=== PATIENT | female | born 1985 | race Hispanic/Latino ===

== ENCOUNTER 2021-04-18 15:54 | Emergency (ER) | payer MEDICAID, SELFPAY ==
[2021-04-18] VITALS (7 sets, daily range): BP systolic 110–128; BP diastolic 72–81; PULSE 107–123; RESP 14–23; TEMP 37.9–39.3; O2SAT 94–99
--- NOTE | ~2021-04-18 | XR_ITS ---
EXAMINATION: XR chest 2V DATE: 04/18/2021 16:49 INDICATION: Cough and fever TECHNIQUE: PA and lateral views of the chest are obtained. COMPARISON: None available FINDINGS: There are minimal airspace opacities of the lung bases. There is no pleural effusion or pne umothorax. The cardiomediastinal silhouette is normal. The visualized bones and soft tissues are unre markable. IMPRESSION: 1. Minimal bibasilar airspace opacity, consistent with atelectasis versus pneumonia. Reviewed, dictated and finalized at location B. IMPRESSION: 1. Minimal bibasilar airspace opacity, consistent with atelectasis versus pneum onia.
[2021-04-18 16:32] LABS: Hematocrit 45.8 % (37.0-47.0); Hemoglobin 15.2 g/dL (12.0-15.0); Immature Granulocyte Absolute 0.01 K/mm3 (0.00-0.031); Immature Granulocyte Percent A 0.2 % (0-0.5); Immature Platelet Fraction Pct 24.5 % (0.9-11.2); Lymphocytes Absolute Auto 1.23 K/mm3 (0.9-3.2); Lymphocytes Percent Auto 28.1 % (18.3-44.2); Mean Corpuscular HGB Conc 33.2 g/dl (32-36); Mean Corpuscular Hemoglobin 28.4 pg (26-34); Mean Corpuscular Volume 85.4 fl (80-100); Monocytes Absolute Auto 0.3 K/mm3 (0.1-0.6); Monocytes Percent Auto 5.7 % (2.6-8.5); Neutrophils Absolute Auto 2.9 K/mm3 (1.3-6.7); Platelet Count Result 86 k/mm3 (150-375); Red Blood Count 5.36 M/mm3 (4.2-5.4); Red Cell Distribution Width 12.5 % (11.5-14.5); White Blood Count 4.4 K/mm3 (4.5-10.0)
--- NOTE | 2021-04-18 16:33 | ECG_ITS ---
Measurements Intervals [place] Rate: 124 P: 52 SC: 130 QRS: 13 QRSD: 84 T: 4 QT: 336 QTc: 483 Interpretive Statements SINUS TACHYCARDIA DELAYED PRECORDIAL R/S TRANSITION NONSPECIFIC T-WAVE ABNORMALITY- ANTEROLAT/INF LEADS ABNORMAL ECG Electronically Signed On 04-19-2021 7:28:57 CDT by Justin Cr D.O.
[2021-04-18 16:40] LABS: Anion Gap 8 mmol/L (8-16); Blood Urea Nitrogen 7 mg/dL (7-17); Calcium 8.9 mg/dL (8.4-10.2); Carbon Dioxide 25 mmol/L (22-30); Chloride 102 mmol/L (98-107); Estimated Glomerular Filt Rate > 60; Glucose 254 mg/dL (65-110); Potassium 3.8 mmol/L (3.4-5.0); Sodium 135 mmol/L (137-145)
[2021-04-18 19:21] LABS: Add Urine Microscopic? YES; Appearance Urine Cloudy (Clear); Bacteria Urine Trace /hpf; Bilirubin Urine Negative (Negative); Blood Urine 1+ (Negative); Color Urine Amber (Yellow); Glucose Urine UA 1+ mg/dL (Negative); Ketones Urine 1+ mg/dL (Negative); Leukocyte Esterase Ur 1+ LEU/UL (Negative); Mucus Urine Heavy /lpf; Nitrate Urine Negative (Negative); Protein Urine 1+ mg/dL (Negative); Squamous Epithelial Cell Urine Many /hpf (Few)
[2021-04-18] MEDS: KETOROLAC 30 MG/ML VIAL (*BKC) IV PUSH (19:23)
[2021-04-18] MEDS: ACETAMINOPHEN 500 MG TABLET 1000 MG PO (19:23)
[2021-04-18] MEDS: SODIUM CHLORIDE 0.9% IV 500 ML 999 ML IV CONT (19:23)
--- NOTE | 2021-04-18 20:00 | ED.FEVER ---
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 She denies any nausea or vomiting or abdominal pain. Denies any exposure to Covid she states that she is at home with her 2 kids. She states that she has not been vaccinated. MD elicited complaint: fever and malaise Pertinent past history: diabetes Onset (ago): day(s) (4) Exacerbating factors: nothing Associated symptoms: myalgias and cough Related Data Allergies Allergy/AdvReac Type Severity Reaction Status Date / Time No Known Allergies Allergy Verified 04/18/21 18:45 Review of Systems Review of Systems: All systems reviewed & are unremarkable except as noted in HPI and below Constitutional: Constitutional: Reports body ache(s), Reports fatigue and Reports fever(s) Eyes: Eyes: Reports no additional eye complaints ENT: Reports system reviewed and no additional complaints, except as documented Cardiovascular: Cardiovascular: Reports no additional cardiovascular complaints Respiratory: Respiratory: Reports as per HPI Gastrointestinal: Gastrointestinal: Reports no additional gastrointestinal complaints Musculoskeletal: Musculoskeletal: Reports no additional musculoskeletal complaints Neurologic: Reports system reviewed and no additional complaints, except as documented PMFSH Social History Social History Gender identity (if verbalized by the patient): Female Exam Narrative: Exam Narrative: GENERAL: Well-appearing, well-nourished, febrile and in no acute distress. HEAD: Normocephalic, atraumatic. EYES: PERRLA and EOMI.. NECK: Supple. CHEST: Clear to auscultation. No respiratory distress. HEART: Regular rate and rhythm. No murmur heard. Normal peripheral pulses. ABDOMEN: Soft, nontender, nondistended, normal active bowel sounds. EXTREMITIES: Normal range of motion. No edema. SKIN: Warm, dry, no rash. NEURO: No focal deficits. Alert and oriented x3. PSYCH: Normal mood and affect. Course Course Emergency Course: Inform patient about her lab work, x-ray findings. Advised her to drink plenty of fluids take antibiotic as prescribed. Vital Signs Vital signs: Vital Signs Temperature 38.5 C H 04/18/21 16:07 Pulse Rate 122 H 04/18/21 16:07 Respiratory Rate 14 04/18/21 16:07 Blood Pressure 128/78 04/18/21 16:07 Pulse Oximetry 99 04/18/21 16:07 Temperature 38.3 C H 04/18/21 19:59 Pulse Rate 107 H 04/18/21 19:59 Respiratory Rate 18 04/18/21 19:59 Blood Pressure 110/72 04/18/21 19:59 Pulse Oximetry 94 04/18/21 19:59 MDM - Fever Lab Data Result diagrams: 04/18/21 16:22 04/18/21 16:22 Labs: Lab Results 04/18/21 04/18/21 04/18/21 Range/Units 16:22 16:22 19:07 WBC 4.4 L (4.5-10.0) K/mm3 RBC 5.36 (4.2-5.4) M/mm3 Hgb 15.2 H (12.0-15.0) g/dL Hct 45.8 (37.0-47.0) % MCV 85.4 (80-100) fl MCH 28.4 (26-34) pg MCHC 33.2 (32-36) g/dl RDW 12.5 (11.5-14.5) % Plt Count 86 L (150-375) k/mm3 MPV TNP Immature Gran % (Auto) 0.2 (0-0.5) % Neut % (Auto) 66.0 (45.5-73.1) % Lymph % (Auto) 28.1 (18.3-44.2) % [place] % (Auto) 5.7 (2.6-8.5) % Eos % (Auto) 0.0 (0-4.4) % Baso % (Auto) 0.0 L (0.2-1.2) % Lymph # (Auto) 1.23 (0.9-3.2) K/mm3 [place] # (Auto) 0.3 (0.1-0.6) K/mm3 Eos # (Auto) 0.0 (0-0.3) K/mm3 Baso # (Auto) 0.0 (0.0-0.1) K/mm3 Abs Immat Gran (auto) 0.01 (0.00-0.031) K/mm3 Absolute Neuts (auto) 2.9 (1.3-6.7) K/mm3 Absolute Nucleated RBC 0.0 (0.0-0.012) K/mm3 Nucleated RBC % 0.0 (0.0-0.2) % % Immature Plt Fraction 24.5 H (0.9-11.2) % Sodium 1
== END 2021-04-18 20:39 | disposition home or self-care (01) ==
PROVIDERS: Emergency Medicine; Emergency Provider Family Medicine
DX: J18.9 Pneumonia, unspecified organism (principal); E11.9 Type 2 diabetes mellitus without complications; R00.0 Tachycardia, unspecified; R94.31 Abnormal electrocardiogram [ECG] [EKG]
CPT/HCPCS: 36415; 71046; 80048; 81001; 85025; 85055; 87086; 87088; 93005; 96361; 96374; 99284; A9270; J1885; J7040

== ENCOUNTER 2021-04-22 20:27 | Inpatient (IN) | payer MEDICAID, OTHER, SELFPAY ==
[2021-04-22] VITALS (16 sets, daily range): BP systolic 100–112; BP diastolic 67–83; PULSE 95–114; RESP 24–34; TEMP 36.2–37.7; O2SAT 86–100
--- NOTE | ~2021-04-22 | XR_ITS ---
XR chest 1V portable DATE: 04/22/2021 22:25 INDICATION: Shortness of breath, fever TECHNIQUE: Portable AP chest on 04/18/2021 at 2215 hours COMPARISON: 04/18/2021 2 view chest FINDINGS: There are extensive patchy bilateral pulmonary infiltrates scattered throughout both lung f ields, significantly increased since 04/24 2021. Normal heart size. No pleural effusion. No pneumothorax. IMPRESSION: Extensive patchy bilateral pulmonary infiltrates, dramatically increased since 04/18/2021 Reviewed, dictated and finalized at location A. IMPRESSION: Extensive patchy bilateral pulmonary infiltrates, dramatically incr eased since 04/18/2021
--- NOTE | ~2021-04-22 | CT_ITS ---
EXAMINATION: CTA chest PE abdomen pel DATE: 04/22/2021 22:35 INDICATION: Hypoxia. Elevated d-dimer. TECHNIQUE: Computed tomography angiography (CTA) of the chest and abdomen was performed with 100 mL O mnipaque-350 intravenous contrast timed to evaluate the pulmonary arteries. Coronal maximum intensity projection 3D-reconstructions were created by the technologist. Automated exposure control and itera tive reconstruction technique were employed. Exam dose: 1431.03 mGy-cm total exam DLP. COMPARISON: 08/23/2021 portable AP chest FINDINGS: There is diagnostic contrast enhancement of the pulmonary arteries. No central pulmonary em bolus is identified. The peripheral pulmonary arteries are not optimally demonstrated due to respirat ory motion. No thoracic aortic aneurysm or dissection. Normal heart size. No pericardial effusion. There is extensive patchy bilateral groundglass pulmonary infiltrates likely due to Covid 19 pneumoni a. There is mild hilar lymphadenopathy. There is diffuse hepatic steatosis. Mild splenomegaly. No hepatic, splenic, pancreatic or right, adre nal or renal space-occupying mass lesion is detected. Normal caliber of the abdominal aorta. No intraperitoneal or retroperitoneal or pelvic mass lesion or adenopathy or ascites. The uterus, adnexa and urinary bladder are unremarkable. No bowel obstruction, bowel wall thickening, pneumatosis or intraperitoneal free air. No suspicious osteolytic or osteoblastic lesions of the chest, abdomen or pelvis. IMPRESSION: No evidence of central pulmonary embolism Extensive patchy bilateral pulmonary infiltrates Mild splenomegaly Hepatic steatosis Reviewed, dictated and finalized at Location A. Reviewed, dictated and finalized at location A.
--- NOTE | 2021-04-22 20:44 | ECG_ITS ---
Measurements Intervals [place] Rate: 113 P: 36 DC: 126 QRS: 14 QRSD: 89 T: -11 QT: 325 QTc: 446 Interpretive Statements SINUS TACHYCARDIA NONSPECIFIC T-WAVE ABNORMALITY- ANTEROLAT/INF LEADS BASELINE ARTIFACT- II, III, AVF, V2-V6 ABNORMAL ECG Electronically Signed On 04-23-2021 6:38:42 CDT by Justin Cr D.O.
[2021-04-22 21:21] LABS: Hemoglobin 13.9 g/dL (12.0-15.0); Immature Platelet Fraction Pct 23.4 % (0.9-11.2); Mean Corpuscular HGB Conc 33.9 g/dl (32-36); Mean Corpuscular Hemoglobin 28.4 pg (26-34); Mean Corpuscular Volume 83.8 fl (80-100); Mean Platelet Volume 14.5 fl (7.4-10.4); Platelet Count Result 115 k/mm3 (150-375); Red Blood Count 4.89 M/mm3 (4.2-5.4); Red Cell Distribution Width 12.4 % (11.5-14.5); White Blood Count 5.3 K/mm3 (4.5-10.0)
--- NOTE | 2021-04-22 21:25 | ED.SOB ---
HPI - SOB/Dyspnea General Chief Complaint: Shortness of Breath/Dyspnea Stated Complaint: sob Time Seen by Provider: 04/22/21 21:01 Source: patient Mode of arrival: ambulatory Limitations: language barrier History of Present Illness HPI Narrative: This is a 35 year old female who presents for evaluation of worsening shortness of breath. PAtient developed cough, fever, and headache 8-9 days. She was evaluated at [facility] 4 days ago , and she was diagnosed with pneumonia. She was discharged with antibiotics but she was not swabbed for covid. She has returned because she is having worsening shortness of breath, fever and headache. She has not been vaccinated for covid. She denies chest pain, vomiting or diarrhea. She was found to be hypoxic at time of triage with oxygen saturation of 86 % on room air. Related Data Allergies Allergy/AdvReac Type Severity Reaction Status Date / Time No Known Allergies Allergy Verified 04/18/21 18:45 Review of Systems Review of Systems: All systems reviewed & are unremarkable except as noted in HPI and below Constitutional: Constitutional: Reports chills and Reports fever(s) Cardiovascular: Cardiovascular: Denies chest pain Respiratory: Respiratory: Reports cough and Reports dyspnea Gastrointestinal: Gastrointestinal: Denies abdominal pain, Denies diarrhea, Denies nausea and Denies vomiting Neurologic: Reports headache(s) [facility] Past Medical History Medical History (Updated 04/23/21 @ 08:25 by Ruma Mae MD) Patient denies medical problems Surgical History Surgical History (Updated 04/23/21 @ 03:37 by Marina Correa DO) Ectopic , tubal History of tubal ligation Family History Family History Mother No significant medical problems Father No significant medical problems Social History Social History (Updated 04/23/21 @ 03:39 by Marina Correa DO) Social History: She lives at home with her 5-year-old and 9-year-old daughters and her boyfriend. She has a 22-year-old daughter that is moved out. 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 She will occasionally smoke a cigarette every month or so. She drinks alcohol on occasion in moderation. She denies listed substance use. Her 1st language is [place]. She is originally from [place]. Smoking status: Current some day smoker Alcohol intake: never Substance use: never Gender identity (if verbalized by the patient): Female Spiritual care concerns: No Exam Const: General: alert and ill appearing Orientation/consciousness: patient oriented x3 HENMT: Mouth: Yes moist mucous membranes Throat: posterior oropharynx normal and uvula midline Eyes: Pupils: Equal, round and reactive pupils present EOM: EOMs intact bilaterally Resp: Effort & Inspection: normal respiratory effort, no retractions and tachypneic Auscultation: rales (right) Cardio: Rate: tachycardic Rhythm: regular rhythm Heart sounds: no murmurs GI: GI Palp: Yes Soft to palpation, Yes Tenderness to palpation present (GI) (RUQ, epigastric), No Guarding due to palpation present (GI) and No Rigid due to palpation Auscultation: normal bowel sounds Skin: General skin exam: normal color Rashes: no rashes Neuro: General: patient oriented x3, moves all extremities and CN's II-XI intact bilaterally Course Reevaluation(s) Reevaluation #1: Patient understands she will be admitted for pneumonia. She likely has covid but will start antibiotics for now. S Date: 04/23/21 Time: 00:14 Consultations Consultation #1: I discussed case with DR. correa. She accepts patient to hospitalist service. She agrees with starting dexamethasone. Date: 04/23/21 Time: 00:14 Vital Signs Vital signs: Vital Signs Temperature 99.8 F H 04/22/21 20:38 Pulse Rate 111 H 04/22/21 20:38 Respiratory Rate 28 H 04/22/21 20:38 Blood Pressure 110/83 04/22/21 20:38 Pulse Oximetry 86 L 04/22/21 20:3
[2021-04-22 21:27] LABS: INR 0.9; Prothrombin Time 12.5 Seconds (11.1-14.7)
[2021-04-22 21:28] LABS: Partial Thromboplastin Time 27.8 SECONDS (22.3-36.8)
[2021-04-22 21:30] LABS: Lactic Acid Reflex 1.1 mmol/L (0.7-2.1)
[2021-04-22 21:34] LABS: CRP 7.8 mg/dL (<1.0); Lipase 397 U/L (23-300)
[2021-04-22] MEDS: SODIUM CHLORIDE 0.9% IV 1,000 ML 999 ML IV CONT (21:36)
[2021-04-22 21:41] LABS: D Dimer 0.81 ug/mL (<0.48)
[2021-04-22 21:43] LABS: Alanine Aminotransferase 44 U/L (4-35); Albumin Level 3.8 g/dL (3.5-5.1); Alkaline Phosphatase 45 U/L (38-126); Anion Gap 9 mmol/L (8-16); Aspartate Amino Transferase 50 U/L (14-36); Bilirubin,Total 0.6 mg/dL (0.2-1.3); Blood Urea Nitrogen 6 mg/dL (7-17); Calcium 8.7 mg/dL (8.4-10.2); Carbon Dioxide 28 mmol/L (22-30); Chloride 96 mmol/L (98-107); Estimated CRCL calculation 192 ml/min; Estimated Glomerular Filt Rate > 60; Glucose 261 mg/dL (65-110); Potassium 3.7 mmol/L (3.4-5.0); Sodium 133 mmol/L (137-145); Troponin I < 0.012 ng/mL (0.000-0.034)
[2021-04-22] MEDS: ALBUTEROL SULFATE (*SP) AEROSOL 1 PUFF 4 PUFF INHALATION (21:49)
[2021-04-22 21:53] LABS: Band Neutrophils Percent 5 % (0-6); Lymphocytes Absolute Manual 1.69 K/mm3 (1.1-4.5); Monocytes Absolute Manual 0.21 K/mm3 (0.1-0.90); Monocytes Percent Manual 4 % (3-9); Neutrophils Absolute Manual 3.39 K/mm3 (1.7-7.2); Neutrophils Percent Manual 59 % (46-73); Total Cells Counted 100
[2021-04-22 21:54] LABS: Atypical Lymphocytes Present; Platelet Estimate Decreased (Adequate)
[2021-04-22 22:00] LABS: Alveolar/Arterial O2 Gradient 97.6 mmHg; Base Excess ABG 2.6 mEq/l (+/-2.0); Fractional Inspired Oxygen 28 %; HCO3 ABG 25.1 mEq/l (22.0-26.0); Methemoglobin ABG 0.3 %THb (0-1.5); Oxygen Content ABG 20.2 %vol (16.0-22.0); Oxygen Saturation ABG 94.2 % (95.0-100.0); Oxyhemoglobin 91.8 % THb (90.0-100.0); PCO2 ABG 32.8 mmHg (35.0-45.0); PO2 ABG 63.3 mmHg (80.0-100.0); PO2 FiO2 Ratio Arterial Blood 2.26 %; Reduced Hemoglobin 7.9 %THb (0-5.0); Total Hemoglobin 15.7 g/dL (12.0-18.0); pH ABG 7.502 (7.350-7.450)
[2021-04-22 22:01] LABS: Device NASAL CANNULA; Modified Allen's Test Pass; Site Drawn LEFT RADIAL
--- NOTE | 2021-04-22 22:07 | PCRCNOTE ---
Critical value pH (7.502) called to Klaudia Marquez RN
[2021-04-22] MEDS: DEXAMETHASONE 2 MG TABLET 6 MG PO (23:23)
[2021-04-22 23:57] LABS: Add Urine Microscopic? YES; Appearance Urine Clear (Clear); Bilirubin Urine Negative (Negative); Blood Urine 1+ (Negative); Color Urine Yellow (Yellow); Glucose Urine UA 2+ mg/dL (Negative); Ketones Urine 1+ mg/dL (Negative); Leukocyte Esterase Ur Negative LEU/UL (Negative); Mucus Urine Rare /lpf; Nitrate Urine Negative (Negative); Protein Urine Negative (Negative); RBC Urine 0-2 /hpf (0-2); Specific Grav Ur 1.011 (1.001-1.035); Squamous Epithelial Cell Urine Rare /hpf (Few); Urobilinogen Urine Negative mg/dL (<2.0); WBC Urine 0-3 /hpf
[2021-04-23] VITALS (14 sets, daily range): BP systolic 100–115; BP diastolic 64–77; PULSE 81–94; RESP 12–30; TEMP 36.5–36.7; O2SAT 91–98; BMI 29.2
--- NOTE | 2021-04-23 02:37 | ADMGEN ---
This patient, Yousif Hillman, was admitted to 3 [facility] [place] [place] Room 300-01. Patient/family oriented to hospital policies and general routines including ID bracelet, bed and alarms, visiting hours, pain management, procedures, bathroom and other care routines, personal items, smoking policy, room service/diet, and visiting hours. Information on how to activate the Rapid Response Team has been discussed. Patient/Family are encouraged to report perceived risks to care and to ask questions if they do not understand what they are told or what they should do.
[2021-04-23] MEDS: SODIUM CHLORIDE 0.9% IV 1,000 ML 125 ML IV CONT ×2 (02:51→11:30)
--- NOTE | 2021-04-23 03:33 | PM.IMHP ---
H&P: HPI History of Present Illness Date/Time: 04/23/21 03:33 Chief Complaint: increasing shortness of breath and fever Narrative: 35-year-old female who was previously healthy with recent diagnosis of pneumonia who presented back to the ER with worsening symptoms. patient initially presented to the ER 04/18/2021 due to cough, body aches and fever up to 102.7 on the 20 a and persistent fever as high as 100.9 at home. that admit ongoing since the . She was seen and evaluated in the ER where x-ray demonstrated bilateral infiltrates and she was discharged home on azithromycin without being tested for COVID. The patient denies any known COVID exposures. She reports that her boyfriend who lives with her became ill but he started having symptoms after her onset of symptoms. She has not been out in the community and stays at home with her 2 children. She came back to the ER with a new onset of dyspnea on exertion, headaches and persistent cough. She reports that her cough is productive of green sputum if she walks around. She has had loss of sense of smell but denies any loss of sense of taste. She reports that she has been drinking plenty of fluids but has had decreased appetite. She has not had any nausea, vomiting or diarrhea. The patient was afebrile on arrival to the ER today but had marked tachypnea and Mild tachycardia. she denies any chest pain, palpitations or lower extremity swelling. She has not been having any orthopnea or loss of consciousness. Review of Systems Review of Systems: Narrative: 12 systems were reviewed with pertinent positives and negatives per HPI. Except as documented in the HPI, all other systems were reviewed and are negative. [facility] Past Medical History Medical History (Updated 04/23/21 @ 03:51 by Marina Valencia DO) Patient denies medical problems Surgical History Surgical History (Updated 04/23/21 @ 03:37 by Marina Valencia DO) Ectopic , tubal History of tubal ligation Family History Family History Mother No significant medical problems Father No significant medical problems Social History Social History (Updated 04/23/21 @ 03:39 by Marina Valencia DO) Social History: She lives at home with her 5-year-old and 9-year-old daughters and her boyfriend. She has a 22-year-old daughter that is moved out. 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 She will occasionally smoke a cigarette every month or so. She drinks alcohol on occasion in moderation. She denies listed substance use. Her 1st language is [place]. She is originally from [place]. Smoking status: Current some day smoker Alcohol intake: never Substance use: never Gender identity (if verbalized by the patient): Female Spiritual care concerns: No Meds Home Medications and Allergies Home Medications Medication Instructions Recorded Confirmed Type azithromycin [Zithromax Z-Liam] See Rx Instructions .ROUTE 04/18/21 04/23/21 Rx .COMPLEX #6 tablet Allergies Allergy/AdvReac Type Severity Reaction Status Date / Time No Known Allergies Allergy Verified 04/18/21 18:45 Vital Signs Vital Signs - 24 hr 04/22/21 20:38 04/22/21 21:13 04/22/21 21:35 Temperature 99.8 F H 98.9 F Pulse Rate 111 H 111 H 112 H Respiratory Rate 28 H 32 H 33 H Blood Pressure 110/83 110/78 Pulse Oximetry 86 L 96 97 04/22/21 21:43 04/22/21 21:45 04/22/21 21:52 Temperature 99.9 F H Pulse Rate 109 H 107 H 107 H Respiratory Rate 32 H 34 H 28 H Blood Pressure 112/81 Pulse Oximetry 97 97 04/22/21 22:00 04/22/21 22:01 04/22/21 22:15 Temperature Pulse Rate 114 H 113 H 112 H Respiratory Rate 32 H 32 H 34 H Blood Pressure 109/67 Pulse Oximetry 100 97 95 04/22/21 22:34 04/22/21 22:45 04/22/21 23:00 Temperature Pulse Rate 104 H 108 H 100 Respiratory Rate 28 H 29 H 29 H Blood Pressure Pulse Oximetry 97 96 97 04/22/21 23:15
[2021-04-23 07:10] LABS: CRP 7.2 mg/dL (<1.0); Lactate Dehydrogenase 842 U/L (313-618)
--- NOTE | 2021-04-23 08:25 | P.PN_ITS ---
Progress Note: A&P Assessment and Plan (1) Acute respiratory failure with hypoxia: Code(s): J96.01 - Acute respiratory failure with hypoxia Status: Acute Assessment and Plan: * possibly secondary to pneumonia versus COVID * imaging indicates patchy pulmonary infiltration that has worsened since 04/18/2021 * continue azithromycin and Rocephin day 2 * continue dexamethasone * if patient's blood culture is without growth we will discontinue the use of antibiotics * COVID and blood culture pending * WBC within normal limits * elevated D-dimer 0.81 * CTA does not indicate pulmonary embolism (2) Pneumonia: Qualifiers: Laterality: bilateral Lung location: unspecified part of lung Pneumonia type: due to unspecified organism Qualified Code(s): J18.9 - Pneumonia, unspecified organism Code(s): J18.9 - Pneumonia, unspecified organism Status: Acute Assessment and Plan: * possibly secondary to pneumonia versus COVID * imaging indicates patchy pulmonary infiltration that has worsened since 04/18/2021 * continue azithromycin and Rocephin day 2 * continue dexamethasone * if patient's blood culture is without growth we will discontinue the use of antibiotics * COVID and blood culture pending * WBC within normal limits * elevated D-dimer 0.81 * CTA does not indicate pulmonary embolism (3) Suspected COVID-19 virus infection: Code(s): Z20.822 - Contact with and (suspected) exposure to COVID-19 Status: Acute Assessment and Plan: * possibly secondary to pneumonia versus COVID * imaging indicates patchy pulmonary infiltration that has worsened since 04/18/2021 * continue azithromycin and Rocephin day 2 * continue dexamethasone * if patient's blood culture is without growth we will discontinue the use of antibiotics * COVID and blood culture pending * WBC within normal limits * elevated D-dimer 0.81 * CTA does not indicate pulmonary embolism * it does appear on hold for now into COVID test returns (4) Hepatic steatosis: Code(s): K76.0 - Fatty (change of) liver, not elsewhere classified Status: Acute Assessment and Plan: * (5) Splenomegaly: Code(s): R16.1 - Splenomegaly, not elsewhere classified Status: Acute Assessment and Plan: * will monitor (6) Sepsis: Qualifiers: Acute respiratory failure type: with hypoxia Sepsis acute organ dysfunction status: with acute organ dysfunction Sepsis type: sepsis due to unspecified organism Severe sepsis acute organ dysfunction type: acute respiratory failure Severe sepsis shock status: without septic shock Qualified Code(s): A41.9 - Sepsis, unspecified organism; R65.20 - Severe sepsis without septic shock; J96.01 - Acute respiratory failure with hypoxia Code(s): A41.9 - Sepsis, unspecified organism Status: Acute Assessment and Plan: * as evidenced by tachycardia, tachypnea,hypoxia and soft BP * continue IV fluid and antibiotic therapy * WBC within normal limits * blood culture pending * lactic acid 1.1 * CRP 2 (7) Thrombocytopenia: Code(s): D69.6 - Thrombocytopenia, unspecified Status: Acute Assessment and Plan: * [id number]. decrease stone last admission 86 * etiology unknown could possibly be secondary to sepsis * will trend * if no improvement hematology/ oncology will need to be consulted * no obvious bleeding or hemorrhage noted (8) H/O leukocytosis: Code(s): Z86.2 - Personal history of diseases of the bloo
--- NOTE | 2021-04-23 08:25 | WPDPN ---
Progress Note: A&P Assessment and Plan (1) Acute respiratory failure with hypoxia: Code(s): J96.01 - Acute respiratory failure with hypoxia Status: Acute Assessment and Plan: possibly secondary to pneumonia versus COVID imaging indicates patchy pulmonary infiltration that has worsened since 04/18/2021 continue azithromycin and Rocephin day 2 continue dexamethasone if patient's blood culture is without growth we will discontinue the use of antibiotics COVID and blood culture pending WBC within normal limits elevated D-dimer 0.81 CTA does not indicate pulmonary embolism (2) Pneumonia: Qualifiers: Laterality: bilateral Lung location: unspecified part of lung Pneumonia type: due to unspecified organism Qualified Code(s): J18.9 - Pneumonia, unspecified organism Code(s): J18.9 - Pneumonia, unspecified organism Status: Acute Assessment and Plan: possibly secondary to pneumonia versus COVID imaging indicates patchy pulmonary infiltration that has worsened since 04/18/2021 continue azithromycin and Rocephin day 2 continue dexamethasone if patient's blood culture is without growth we will discontinue the use of antibiotics COVID and blood culture pending WBC within normal limits elevated D-dimer 0.81 CTA does not indicate pulmonary embolism (3) Suspected COVID-19 virus infection: Code(s): Z20.822 - Contact with and (suspected) exposure to COVID-19 Status: Acute Assessment and Plan: possibly secondary to pneumonia versus COVID imaging indicates patchy pulmonary infiltration that has worsened since 04/18/2021 continue azithromycin and Rocephin day 2 continue dexamethasone if patient's blood culture is without growth we will discontinue the use of antibiotics COVID and blood culture pending WBC within normal limits elevated D-dimer 0.81 CTA does not indicate pulmonary embolism it does appear on hold for now into COVID test returns (4) Hepatic steatosis: Code(s): K76.0 - Fatty (change of) liver, not elsewhere classified Status: Acute Assessment and Plan: (5) Splenomegaly: Code(s): R16.1 - Splenomegaly, not elsewhere classified Status: Acute Assessment and Plan: will monitor (6) Sepsis: Qualifiers: Acute respiratory failure type: with hypoxia Sepsis acute organ dysfunction status: with acute organ dysfunction Sepsis type: sepsis due to unspecified organism Severe sepsis acute organ dysfunction type: acute respiratory failure Severe sepsis shock status: without septic shock Qualified Code(s): A41.9 - Sepsis, unspecified organism; R65.20 - Severe sepsis without septic shock; J96.01 - Acute respiratory failure with hypoxia Code(s): A41.9 - Sepsis, unspecified organism Status: Acute Assessment and Plan: as evidenced by tachycardia, tachypnea,hypoxia and soft BP continue IV fluid and antibiotic therapy WBC within normal limits blood culture pending lactic acid 1.1 CRP 2 (7) Thrombocytopenia: Code(s): D69.6 - Thrombocytopenia, unspecified Status: Acute Assessment and Plan: [id number]. decrease stone last admission 86 etiology unknown could possibly be secondary to sepsis will trend if no improvement hematology/ oncology will need to be consulted no obvious bleeding or hemorrhage noted (8) H/O leukocytosis: Code(s): Z86.2 - Personal history of diseases of the blood and blood-forming organs and certain disorders involving the immune mechanism Status: Acute Assessment and Plan: WBC 5.3>3.4 on last admission 4.4 (9) Elevated d-dimer: Code(s): R79.89 - Other specified abnormal findings of blood chemistry Status: Acute Assessment and Plan: possibly secondary to infection versus inflammation CT does not indicate PE (10) Elevated liver enzymes:
[2021-04-23 09:07] LABS: Hematocrit 40.8 % (37.0-47.0); Hemoglobin 13.2 g/dL (12.0-15.0); Immature Platelet Fraction Pct 27.1 % (0.9-11.2); Mean Corpuscular HGB Conc 32.4 g/dl (32-36); Mean Corpuscular Volume 86.6 fl (80-100); Mean Platelet Volume 15.1 fl (7.4-10.4); Platelet Count Result 104 k/mm3 (150-375); Red Blood Count 4.71 M/mm3 (4.2-5.4); Red Cell Distribution Width 12.5 % (11.5-14.5); White Blood Count 3.4 K/mm3 (4.5-10.0)
[2021-04-23] MEDS: DEXAMETHASONE 2 MG TABLET 6 MG PO (09:36)
[2021-04-23] MEDS: ENOXAPARIN 40 MG/0.4 ML SYRINGE SUB-Q (09:36)
[2021-04-23 09:44] LABS: Alanine Aminotransferase 44 U/L (4-35); Albumin Level 3.3 g/dL (3.5-5.1); Alkaline Phosphatase 42 U/L (38-126); Anion Gap 11 mmol/L (8-16); Aspartate Amino Transferase 43 U/L (14-36); Bilirubin,Total 0.4 mg/dL (0.2-1.3); Blood Urea Nitrogen 6 mg/dL (7-17); Calcium 8.1 mg/dL (8.4-10.2); Carbon Dioxide 23 mmol/L (22-30); Chloride 103 mmol/L (98-107); Estimated CRCL calculation 175 ml/min; Estimated Glomerular Filt Rate > 60; Glucose 335 mg/dL (65-110); Potassium 4.5 mmol/L (3.4-5.0); Sodium 137 mmol/L (137-145)
[2021-04-23] MEDS: BENZONATATE 100 MG CAPSULE 200 MG PO (17:39)
[2021-04-23] MEDS: traZODone HCL 50 MG TABLET PO (22:00)
[2021-04-23] MEDS: guaiFENesin 12 HR 600 MG TABCR 1200 MG PO (22:00)
[2021-04-24] VITALS (9 sets, daily range): BP systolic 101–136; BP diastolic 63–82; PULSE 51–78; RESP 12–18; TEMP 36.2–36.9; O2SAT 90–96
[2021-04-24 06:41] LABS: Basophils Percent Auto 0.2 % (0.2-1.2); Eosinophils Percent Auto 0.2 % (0-4.4); Hematocrit 37.6 % (37.0-47.0); Hemoglobin 12.3 g/dL (12.0-15.0); Immature Granulocyte Absolute 0.02 K/mm3 (0.00-0.031); Immature Granulocyte Percent A 0.5 % (0-0.5); Lymphocytes Absolute Auto 1.65 K/mm3 (0.9-3.2); Lymphocytes Percent Auto 37.8 % (18.3-44.2); Mean Corpuscular HGB Conc 32.7 g/dl (32-36); Mean Corpuscular Hemoglobin 28.3 pg (26-34); Mean Corpuscular Volume 86.4 fl (80-100); Monocytes Absolute Auto 0.4 K/mm3 (0.1-0.6); Monocytes Percent Auto 9.6 % (2.6-8.5); Neutrophils Absolute Auto 2.3 K/mm3 (1.3-6.7); Neutrophils Percent Auto 51.7 % (45.5-73.1); Platelet Count Result 136 k/mm3 (150-375); Red Blood Count 4.35 M/mm3 (4.2-5.4); Red Cell Distribution Width 12.5 % (11.5-14.5); White Blood Count 4.4 K/mm3 (4.5-10.0)
[2021-04-24 06:47] LABS: Lactic Acid Reflex 0.9 mmol/L (0.7-2.1)
[2021-04-24 06:54] LABS: Alanine Aminotransferase 39 U/L (4-35); Alkaline Phosphatase 40 U/L (38-126); Anion Gap 10 mmol/L (8-16); Aspartate Amino Transferase 41 U/L (14-36); Bilirubin,Total 0.4 mg/dL (0.2-1.3); Blood Urea Nitrogen 14 mg/dL (7-17); Calcium 8.2 mg/dL (8.4-10.2); Carbon Dioxide 22 mmol/L (22-30); Chloride 106 mmol/L (98-107); Estimated CRCL calculation 223 ml/min; Estimated Glomerular Filt Rate > 60; Glucose 262 mg/dL (65-110); Magnesium 1.9 mg/dL (1.6-2.3); Potassium 3.8 mmol/L (3.4-5.0); Sodium 138 mmol/L (137-145)
[2021-04-24 08:29] LABS: Large Platelets Present; Platelet Estimate Adequate (Adequate)
[2021-04-24 08:30] LABS: Atypical Lymphocytes Present
[2021-04-24] MEDS: BENZONATATE 100 MG CAPSULE 200 MG PO ×3 (09:44→16:02)
[2021-04-24] MEDS: DEXAMETHASONE 2 MG TABLET 6 MG PO (09:44)
[2021-04-24] MEDS: ENOXAPARIN 40 MG/0.4 ML SYRINGE SUB-Q (09:44)
[2021-04-24] MEDS: guaiFENesin 12 HR 600 MG TABCR 1200 MG PO ×2 (09:45→20:35)
--- NOTE | 2021-04-24 13:24 | P.PNIM_ITS ---
Progress Note: A&P Assessment and Plan (1) Acute respiratory failure with hypoxia: Code(s): J96.01 - Acute respiratory failure with hypoxia Status: Acute Assessment and Plan: * possibly secondary to pneumonia versus COVID * imaging indicates patchy pulmonary infiltration that has worsened since 04/18/2021 * continue azithromycin and Rocephin day 3 * continue dexamethasone * if patient's blood culture is without growth we will discontinue the use of antibiotics * COVID and blood culture pending * WBC within normal limits * elevated D-dimer 0.81 * CTA does not indicate pulmonary embolism * Supplemental oxygen to maintain O2 saturation of >92% (2) Pneumonia: Qualifiers: Laterality: bilateral Lung location: unspecified part of lung Pneumonia type: due to unspecified organism Qualified Code(s): J18.9 - Pneumonia, unspecified organism Code(s): J18.9 - Pneumonia, unspecified organism Status: Acute Assessment and Plan: * possibly secondary to pneumonia versus COVID * imaging indicates patchy pulmonary infiltration that has worsened since 04/18/2021 * continue azithromycin and Rocephin day 2 * continue dexamethasone * if patient's blood culture is without growth we will discontinue the use of antibiotics * COVID and blood culture pending * WBC within normal limits * elevated D-dimer 0.81 * CTA does not indicate pulmonary embolism (3) Suspected COVID-19 virus infection: Code(s): Z20.822 - Contact with and (suspected) exposure to COVID-19 Status: Acute Assessment and Plan: * possibly secondary to pneumonia versus COVID * imaging indicates patchy pulmonary infiltration that has worsened since 04/18/2021 * continue azithromycin and Rocephin day 2 * continue dexamethasone * if patient's blood culture is without growth we will discontinue the use of antibiotics * COVID and blood culture pending * WBC within normal limits * elevated D-dimer 0.81 * CTA does not indicate pulmonary embolism * it does appear on hold for now into COVID test returns (4) Hepatic steatosis: Code(s): K76.0 - Fatty (change of) liver, not elsewhere classified Status: Acute Assessment and Plan: * (5) Splenomegaly: Code(s): R16.1 - Splenomegaly, not elsewhere classified Status: Acute Assessment and Plan: * will monitor (6) Sepsis: Qualifiers: Acute respiratory failure type: with hypoxia Sepsis acute organ dysfunction status: with acute organ dysfunction Sepsis type: sepsis due to unspecified organism Severe sepsis acute organ dysfunction type: acute respiratory failure Severe sepsis shock status: without septic shock Qualified Code(s): A41.9 - Sepsis, unspecified organism; R65.20 - Severe sepsis without septic shock; J96.01 - Acute respiratory failure with hypoxia Code(s): A41.9 - Sepsis, unspecified organism Status: Acute Assessment and Plan: * as evidenced by tachycardia, tachypnea,hypoxia and soft BP * continue IV fluid and antibiotic therapy * WBC within normal limits * blood culture pending * lactic acid 1.1 * CRP 2 (7) Thrombocytopenia: Code(s): D69.6 - Thrombocytopenia, unspecified Status: Acute Assessment and Plan: * >104. decrease stone last admission 86 * etiology unknown could possibly be secondary to sepsis * will trend * if no improvement hematology/ oncology will need to be consulted * no obvious bleeding or hemorrhage noted (8) H/O leukocytosis: C
--- NOTE | 2021-04-24 13:24 | PM.IMPN ---
Progress Note: A&P Assessment and Plan (1) Acute respiratory failure with hypoxia: Code(s): J96.01 - Acute respiratory failure with hypoxia Status: Acute Assessment and Plan: possibly secondary to pneumonia versus COVID imaging indicates patchy pulmonary infiltration that has worsened since 04/18/2021 continue azithromycin and Rocephin day 3 continue dexamethasone if patient's blood culture is without growth we will discontinue the use of antibiotics COVID and blood culture pending WBC within normal limits elevated D-dimer 0.81 CTA does not indicate pulmonary embolism Supplemental oxygen to maintain O2 saturation of >92% (2) Pneumonia: Qualifiers: Laterality: bilateral Lung location: unspecified part of lung Pneumonia type: due to unspecified organism Qualified Code(s): J18.9 - Pneumonia, unspecified organism Code(s): J18.9 - Pneumonia, unspecified organism Status: Acute Assessment and Plan: possibly secondary to pneumonia versus COVID imaging indicates patchy pulmonary infiltration that has worsened since 04/18/2021 continue azithromycin and Rocephin day 2 continue dexamethasone if patient's blood culture is without growth we will discontinue the use of antibiotics COVID and blood culture pending WBC within normal limits elevated D-dimer 0.81 CTA does not indicate pulmonary embolism (3) Suspected COVID-19 virus infection: Code(s): Z20.822 - Contact with and (suspected) exposure to COVID-19 Status: Acute Assessment and Plan: possibly secondary to pneumonia versus COVID imaging indicates patchy pulmonary infiltration that has worsened since 04/18/2021 continue azithromycin and Rocephin day 2 continue dexamethasone if patient's blood culture is without growth we will discontinue the use of antibiotics COVID and blood culture pending WBC within normal limits elevated D-dimer 0.81 CTA does not indicate pulmonary embolism it does appear on hold for now into COVID test returns (4) Hepatic steatosis: Code(s): K76.0 - Fatty (change of) liver, not elsewhere classified Status: Acute Assessment and Plan: (5) Splenomegaly: Code(s): R16.1 - Splenomegaly, not elsewhere classified Status: Acute Assessment and Plan: will monitor (6) Sepsis: Qualifiers: Acute respiratory failure type: with hypoxia Sepsis acute organ dysfunction status: with acute organ dysfunction Sepsis type: sepsis due to unspecified organism Severe sepsis acute organ dysfunction type: acute respiratory failure Severe sepsis shock status: without septic shock Qualified Code(s): A41.9 - Sepsis, unspecified organism; R65.20 - Severe sepsis without septic shock; J96.01 - Acute respiratory failure with hypoxia Code(s): A41.9 - Sepsis, unspecified organism Status: Acute Assessment and Plan: as evidenced by tachycardia, tachypnea,hypoxia and soft BP continue IV fluid and antibiotic therapy WBC within normal limits blood culture pending lactic acid 1.1 CRP 2 (7) Thrombocytopenia: Code(s): D69.6 - Thrombocytopenia, unspecified Status: Acute Assessment and Plan: [id number]>104. decrease stone last admission 86 etiology unknown could possibly be secondary to sepsis will trend if no improvement hematology/ oncology will need to be consulted no obvious bleeding or hemorrhage noted (8) H/O leukocytosis: Code(s): Z86.2 - Personal history of diseases of the blood and blood-forming organs and certain disorders involving the immune mechanism Status: Acute Assessment and Plan: WBC 5.3>3.4 on last admission 4.4 (9) Elevated d-dimer: Code(s): R79.89 - Other specified abnormal findings of blood chemistry Status: Acute Assessment and Plan: possibly secondary to infection versus inflammation CT
[2021-04-25] VITALS (8 sets, daily range): BP systolic 105–126; BP diastolic 62–79; PULSE 58–75; RESP 16–20; TEMP 36.2–36.9; O2SAT 92–97
[2021-04-25 06:40] LABS: Basophils Percent Auto 0.2 % (0.2-1.2); Eosinophils Percent Auto 0.2 % (0-4.4); Hemoglobin 12.5 g/dL (12.0-15.0); Immature Granulocyte Absolute 0.04 K/mm3 (0.00-0.031); Immature Granulocyte Percent A 0.8 % (0-0.5); Immature Platelet Fraction Pct 24.8 % (0.9-11.2); Lymphocytes Absolute Auto 1.84 K/mm3 (0.9-3.2); Lymphocytes Percent Auto 38.7 % (18.3-44.2); Mean Corpuscular HGB Conc 32.9 g/dl (32-36); Mean Corpuscular Hemoglobin 28.3 pg (26-34); Mean Platelet Volume 14.7 fl (7.4-10.4); Monocytes Absolute Auto 0.3 K/mm3 (0.1-0.6); Monocytes Percent Auto 6.5 % (2.6-8.5); Neutrophils Absolute Auto 2.6 K/mm3 (1.3-6.7); Neutrophils Percent Auto 53.6 % (45.5-73.1); Platelet Count Result 159 k/mm3 (150-375); Red Blood Count 4.42 M/mm3 (4.2-5.4); Red Cell Distribution Width 12.4 % (11.5-14.5); White Blood Count 4.8 K/mm3 (4.5-10.0)
[2021-04-25 06:57] LABS: Alanine Aminotransferase 42 U/L (4-35); Albumin Level 3.2 g/dL (3.5-5.1); Alkaline Phosphatase 38 U/L (38-126); Anion Gap 8 mmol/L (8-16); Aspartate Amino Transferase 34 U/L (14-36); Bilirubin,Total 0.5 mg/dL (0.2-1.3); Blood Urea Nitrogen 17 mg/dL (7-17); Calcium 8.3 mg/dL (8.4-10.2); Carbon Dioxide 24 mmol/L (22-30); Chloride 105 mmol/L (98-107); Estimated CRCL calculation 175 ml/min; Estimated Glomerular Filt Rate > 60; Glucose 205 mg/dL (65-110); Magnesium 1.8 mg/dL (1.6-2.3); Potassium 3.6 mmol/L (3.4-5.0); Sodium 137 mmol/L (137-145)
[2021-04-25] MEDS: ENOXAPARIN 40 MG/0.4 ML SYRINGE SUB-Q (08:08)
[2021-04-25] MEDS: BENZONATATE 100 MG CAPSULE 200 MG PO ×3 (08:08→16:18)
[2021-04-25] MEDS: guaiFENesin 12 HR 600 MG TABCR 1200 MG PO ×2 (08:10→20:50)
[2021-04-25] MEDS: DEXAMETHASONE 2 MG TABLET 6 MG PO (08:10)
[2021-04-25] MEDS: MAGNESIUM SULF 2 GM/WATER 50ML 2 GM/50 ML BAG IVPB (08:24)
--- NOTE | 2021-04-25 09:30 | P.PNIM_ITS ---
Progress Note: A&P Assessment and Plan (1) Acute respiratory failure with hypoxia: Code(s): J96.01 - Acute respiratory failure with hypoxia Status: Acute Assessment and Plan: * possibly secondary to pneumonia versus COVID * imaging indicates patchy pulmonary infiltration that has worsened since 04/18/2021 * continue azithromycin and Rocephin day 3 * continue dexamethasone * if patient's blood culture is without growth we will discontinue the use of antibiotics * COVID and blood culture pending * WBC within normal limits * elevated D-dimer 0.81 * CTA does not indicate pulmonary embolism * Supplemental oxygen to maintain O2 saturation of >92% (2) Pneumonia: Qualifiers: Laterality: bilateral Lung location: unspecified part of lung Pneumonia type: due to unspecified organism Qualified Code(s): J18.9 - Pneumonia, unspecified organism Code(s): J18.9 - Pneumonia, unspecified organism Status: Acute Assessment and Plan: * possibly secondary to pneumonia versus COVID * imaging indicates patchy pulmonary infiltration that has worsened since 04/18/2021 * continue azithromycin and Rocephin day 3 * continue dexamethasone * if patient's blood culture is without growth we will discontinue the use of antibiotics * COVID still pending * blood culture no growth to date * WBC 4.8 * elevated D-dimer 0.81 * CTA does not indicate pulmonary embolism (3) Suspected COVID-19 virus infection: Code(s): Z20.822 - Contact with and (suspected) exposure to COVID-19 Status: Acute Assessment and Plan: * possibly secondary to pneumonia versus COVID * imaging indicates patchy pulmonary infiltration that has worsened since 04/18/2021 * continue azithromycin 500mg IV daily and Rocephin 1gm IV daily day 3 * continue dexamethasone 6mg PO daily * if patient's blood culture is without growth we will discontinue the use of antibiotics * COVID still pending, collected on 04/23/21 * WBC 4.8 * elevated D-dimer 0.81 * CTA does not indicate pulmonary embolism (4) Hepatic steatosis: Code(s): K76.0 - Fatty (change of) liver, not elsewhere classified Status: Acute Assessment and Plan: * (5) Splenomegaly: Code(s): R16.1 - Splenomegaly, not elsewhere classified Status: Acute Assessment and Plan: * will monitor (6) Sepsis: Qualifiers: Acute respiratory failure type: with hypoxia Sepsis acute organ dysfunction status: with acute organ dysfunction Sepsis type: sepsis due to unspecified organism Severe sepsis acute organ dysfunction type: acute respiratory failure Severe sepsis shock status: without septic shock Qualified Code(s): A41.9 - Sepsis, unspecified organism; R65.20 - Severe sepsis without septic shock; J96.01 - Acute respiratory failure with hypoxia Code(s): A41.9 - Sepsis, unspecified organism Status: Acute Assessment and Plan: * as evidenced by tachycardia, tachypnea,hypoxia and soft BP * continue IV fluid and antibiotic therapy * WBC 4.8 * blood culture pending no growth to date * lactic acid 1.1 * CRP 2 (7) Thrombocytopenia: Code(s): D69.6 - Thrombocytopenia, unspecified Status: Acute Assessment and Plan: * platelets 159 today * decrease stone last admission 86 * etiology unknown could possibly be secondary to sepsis * will trend * if no improvement hematology/ oncology will need to be consulted
--- NOTE | 2021-04-25 09:30 | PM.IMPN ---
Progress Note: A&P Assessment and Plan (1) Acute respiratory failure with hypoxia: Code(s): J96.01 - Acute respiratory failure with hypoxia Status: Acute Assessment and Plan: possibly secondary to pneumonia versus COVID imaging indicates patchy pulmonary infiltration that has worsened since 04/18/2021 continue azithromycin and Rocephin day 3 continue dexamethasone if patient's blood culture is without growth we will discontinue the use of antibiotics COVID and blood culture pending WBC within normal limits elevated D-dimer 0.81 CTA does not indicate pulmonary embolism Supplemental oxygen to maintain O2 saturation of >92% (2) Pneumonia: Qualifiers: Laterality: bilateral Lung location: unspecified part of lung Pneumonia type: due to unspecified organism Qualified Code(s): J18.9 - Pneumonia, unspecified organism Code(s): J18.9 - Pneumonia, unspecified organism Status: Acute Assessment and Plan: possibly secondary to pneumonia versus COVID imaging indicates patchy pulmonary infiltration that has worsened since 04/18/2021 continue azithromycin and Rocephin day 3 continue dexamethasone if patient's blood culture is without growth we will discontinue the use of antibiotics COVID still pending blood culture no growth to date WBC 4.8 elevated D-dimer 0.81 CTA does not indicate pulmonary embolism (3) Suspected COVID-19 virus infection: Code(s): Z20.822 - Contact with and (suspected) exposure to COVID-19 Status: Acute Assessment and Plan: possibly secondary to pneumonia versus COVID imaging indicates patchy pulmonary infiltration that has worsened since 04/18/2021 continue azithromycin 500mg IV daily and Rocephin 1gm IV daily day 3 continue dexamethasone 6mg PO daily if patient's blood culture is without growth we will discontinue the use of antibiotics COVID still pending, collected on 04/23/21 WBC 4.8 elevated D-dimer 0.81 CTA does not indicate pulmonary embolism (4) Hepatic steatosis: Code(s): K76.0 - Fatty (change of) liver, not elsewhere classified Status: Acute Assessment and Plan: (5) Splenomegaly: Code(s): R16.1 - Splenomegaly, not elsewhere classified Status: Acute Assessment and Plan: will monitor (6) Sepsis: Qualifiers: Acute respiratory failure type: with hypoxia Sepsis acute organ dysfunction status: with acute organ dysfunction Sepsis type: sepsis due to unspecified organism Severe sepsis acute organ dysfunction type: acute respiratory failure Severe sepsis shock status: without septic shock Qualified Code(s): A41.9 - Sepsis, unspecified organism; R65.20 - Severe sepsis without septic shock; J96.01 - Acute respiratory failure with hypoxia Code(s): A41.9 - Sepsis, unspecified organism Status: Acute Assessment and Plan: as evidenced by tachycardia, tachypnea,hypoxia and soft BP continue IV fluid and antibiotic therapy WBC 4.8 blood culture pending no growth to date lactic acid 1.1 CRP 2 (7) Thrombocytopenia: Code(s): D69.6 - Thrombocytopenia, unspecified Status: Acute Assessment and Plan: platelets 159 today decrease stone last admission 86 etiology unknown could possibly be secondary to sepsis will trend if no improvement hematology/ oncology will need to be consulted no obvious bleeding or hemorrhage noted (8) H/O leukocytosis: Code(s): Z86.2 - Personal history of diseases of the blood and blood-forming organs and certain disorders involving the immune mechanism Status: Acute Assessment and Plan: WBC 5.3>3.4 on last admission 4.4 (9) Elevated d-dimer: Code(s): R79.89 - Other specified abnormal findings of blood chemistry Status: Acute Assessment and Plan: possibly secondary to infection v
[2021-04-25 15:39] LABS: SARS-CoV-2 RNA PCR Positive
--- NOTE | 2021-04-25 22:13 | PC.NURSE ---
Patient started to complain of burning in IV site. Flushed and was able to get a blood return. Patient refused to finish that antibiotic. Educated patient on the importance of it and she stated she understood but does not want it.
[2021-04-26 03:48] VITALS: BP 104/61; PULSE 66; RESP 18; TEMP 36.3; O2SAT 96
[2021-04-26 06:22] LABS: Hematocrit 38.7 % (37.0-47.0); Hemoglobin 12.7 g/dL (12.0-15.0); Mean Corpuscular HGB Conc 32.8 g/dl (32-36); Mean Corpuscular Volume 85.4 fl (80-100); Platelet Count Result 164 k/mm3 (150-375); Red Blood Count 4.53 M/mm3 (4.2-5.4); Red Cell Distribution Width 12.1 % (11.5-14.5); White Blood Count 5.1 K/mm3 (4.5-10.0)
[2021-04-26 06:35] LABS: Alanine Aminotransferase 57 U/L (4-35); Albumin Level 3.4 g/dL (3.5-5.1); Alkaline Phosphatase 42 U/L (38-126); Anion Gap 10 mmol/L (8-16); Aspartate Amino Transferase 43 U/L (14-36); Bilirubin,Total 0.6 mg/dL (0.2-1.3); Blood Urea Nitrogen 16 mg/dL (7-17); CRP 1.9 mg/dL (<1.0); Calcium 8.6 mg/dL (8.4-10.2); Carbon Dioxide 24 mmol/L (22-30); Chloride 104 mmol/L (98-107); Estimated CRCL calculation 175 ml/min; Estimated Glomerular Filt Rate > 60; Glucose 219 mg/dL (65-110); Lactate Dehydrogenase 562 U/L (313-618); Magnesium 1.9 mg/dL (1.6-2.3); Potassium 3.3 mmol/L (3.4-5.0); Sodium 138 mmol/L (137-145)
[2021-04-26 07:11] LABS: Mean Platelet Volume 14.5 fl (7.4-10.4)
[2021-04-26 08:00] VITALS: BP 106/69; PULSE 66; RESP 24; TEMP 36.2; O2SAT 94; O2SAT 96
[2021-04-26] MEDS: ENOXAPARIN 40 MG/0.4 ML SYRINGE SUB-Q (09:13)
[2021-04-26] MEDS: DEXAMETHASONE 2 MG TABLET 6 MG PO (09:13)
[2021-04-26] MEDS: BENZONATATE 100 MG CAPSULE 200 MG PO ×3 (09:13→16:26)
[2021-04-26] MEDS: guaiFENesin 12 HR 600 MG TABCR 1200 MG PO ×2 (09:14→20:12)
[2021-04-26 12:00] VITALS: BP 107/59; PULSE 63; RESP 22; TEMP 36.7; O2SAT 95
--- NOTE | 2021-04-26 12:48 | P.PNIM_ITS ---
Progress Note: A&P Assessment and Plan (1) COVID-19: Code(s): U07.1 - COVID-19 Status: Acute Assessment and Plan: * Test was positive * Continue Dexamethasone Day 4 * Supplemental oxygen * IS * Pep therapy * Supportive care (2) Acute respiratory failure with hypoxia: Code(s): J96.01 - Acute respiratory failure with hypoxia Status: Acute Assessment and Plan: * possibly secondary to pneumonia versus COVID * imaging indicates patchy pulmonary infiltration that has worsened since 04/18/2021 * azithromycin and Rocephin DC'd on 04/26/21 * continue dexamethasone day 4 * if patient's blood culture is without growth we will discontinue the use of antibiotics * COVID positive * blood culture no growth to date * WBC 5.1 * elevated D-dimer 0.81 * CTA does not indicate pulmonary embolism * Supplemental oxygen to maintain O2 saturation of >92% (3) Pneumonia: Qualifiers: Laterality: bilateral Lung location: unspecified part of lung Pneumonia type: due to unspecified organism Qualified Code(s): J18.9 - Pneumonia, unspecified organism Code(s): J18.9 - Pneumonia, unspecified organism Status: Acute Assessment and Plan: * patient is covid positive * this problem has been resolved * possibly secondary to pneumonia versus COVID * imaging indicates patchy pulmonary infiltration that has worsened since 04/18/2021 * continue azithromycin and Rocephin day 3 * continue dexamethasone * if patient's blood culture is without growth we will discontinue the use of antibiotics * COVID still pending * blood culture no growth to date * WBC 4.8 * elevated D-dimer 0.81 * CTA does not indicate pulmonary embolism (4) Suspected COVID-19 virus infection: Code(s): Z20.822 - Contact with and (suspected) exposure to COVID-19 Status: Acute Assessment and Plan: * possibly secondary to pneumonia versus COVID * imaging indicates patchy pulmonary infiltration that has worsened since 04/18/2021 * continue azithromycin 500mg IV daily and Rocephin 1gm IV daily day 3 * continue dexamethasone 6mg PO daily * if patient's blood culture is without growth we will discontinue the use of antibiotics * COVID still pending, collected on 04/23/21 * WBC 4.8 * elevated D-dimer 0.81 * CTA does not indicate pulmonary embolism (5) Hepatic steatosis: Code(s): K76.0 - Fatty (change of) liver, not elsewhere classified Status: Acute Assessment and Plan: * (6) Splenomegaly: Code(s): R16.1 - Splenomegaly, not elsewhere classified Status: Acute Assessment and Plan: * will monitor (7) Sepsis: Qualifiers: Acute respiratory failure type: with hypoxia Sepsis acute organ dysfunction status: with acute organ dysfunction Sepsis type: sepsis due to unspecified organism Severe sepsis acute organ dysfunction type: acute respiratory failure Severe sepsis shock status: without septic shock Qualified Code(s): A41.9 - Sepsis, unspecified organism; R65.20 - Severe sepsis without septic shock; J96.01 - Acute respiratory failure with hypoxia Code(s): A41.9 - Sepsis, unspecified organism Status: Acute Assessment and Plan: * as evidenced by tachycardia, tachypnea,hypoxia and soft BP * WBC 5.1 * blood culture pending no growth to date * lactic acid 1.1 * CRP 2 (8) Thrombocytopenia: Code(s): D69
--- NOTE | 2021-04-26 12:48 | PM.IMPN ---
Progress Note: A&P Assessment and Plan (1) COVID-19: Code(s): U07.1 - COVID-19 Status: Acute Assessment and Plan: Test was positive Continue Dexamethasone Day 4 Supplemental oxygen IS Pep therapy Supportive care (2) Acute respiratory failure with hypoxia: Code(s): J96.01 - Acute respiratory failure with hypoxia Status: Acute Assessment and Plan: possibly secondary to pneumonia versus COVID imaging indicates patchy pulmonary infiltration that has worsened since 04/18/2021 azithromycin and Rocephin DC'd on 04/26/21 continue dexamethasone day 4 if patient's blood culture is without growth we will discontinue the use of antibiotics COVID positive blood culture no growth to date WBC 5.1 elevated D-dimer 0.81 CTA does not indicate pulmonary embolism Supplemental oxygen to maintain O2 saturation of >92% (3) Pneumonia: Qualifiers: Laterality: bilateral Lung location: unspecified part of lung Pneumonia type: due to unspecified organism Qualified Code(s): J18.9 - Pneumonia, unspecified organism Code(s): J18.9 - Pneumonia, unspecified organism Status: Acute Assessment and Plan: patient is covid positive this problem has been resolved possibly secondary to pneumonia versus COVID imaging indicates patchy pulmonary infiltration that has worsened since 04/18/2021 continue azithromycin and Rocephin day 3 continue dexamethasone if patient's blood culture is without growth we will discontinue the use of antibiotics COVID still pending blood culture no growth to date WBC 4.8 elevated D-dimer 0.81 CTA does not indicate pulmonary embolism (4) Suspected COVID-19 virus infection: Code(s): Z20.822 - Contact with and (suspected) exposure to COVID-19 Status: Acute Assessment and Plan: possibly secondary to pneumonia versus COVID imaging indicates patchy pulmonary infiltration that has worsened since 04/18/2021 continue azithromycin 500mg IV daily and Rocephin 1gm IV daily day 3 continue dexamethasone 6mg PO daily if patient's blood culture is without growth we will discontinue the use of antibiotics COVID still pending, collected on 04/23/21 WBC 4.8 elevated D-dimer 0.81 CTA does not indicate pulmonary embolism (5) Hepatic steatosis: Code(s): K76.0 - Fatty (change of) liver, not elsewhere classified Status: Acute Assessment and Plan: (6) Splenomegaly: Code(s): R16.1 - Splenomegaly, not elsewhere classified Status: Acute Assessment and Plan: will monitor (7) Sepsis: Qualifiers: Acute respiratory failure type: with hypoxia Sepsis acute organ dysfunction status: with acute organ dysfunction Sepsis type: sepsis due to unspecified organism Severe sepsis acute organ dysfunction type: acute respiratory failure Severe sepsis shock status: without septic shock Qualified Code(s): A41.9 - Sepsis, unspecified organism; R65.20 - Severe sepsis without septic shock; J96.01 - Acute respiratory failure with hypoxia Code(s): A41.9 - Sepsis, unspecified organism Status: Acute Assessment and Plan: as evidenced by tachycardia, tachypnea,hypoxia and soft BP WBC 5.1 blood culture pending no growth to date lactic acid 1.1 CRP 2 (8) Thrombocytopenia: Code(s): D69.6 - Thrombocytopenia, unspecified Status: Acute Assessment and Plan: platelets 159 today decrease stone last admission 86 etiology unknown could possibly be secondary to sepsis will trend if no improvement hematology/ oncology will need to be consulted no obvious bleeding or hemorrhage noted (9) H/O leukocytosis: Code(s): Z86.2 - Personal history of diseases of the blood and blood-forming organs and certain disorders involving the immune mechanism Status: Acute Assessm
[2021-04-26 13:14] VITALS: O2SAT 95
[2021-04-26 16:00] VITALS: BP 116/68; PULSE 59; RESP 22; TEMP 36.9; O2SAT 97
[2021-04-26 20:00] VITALS: BP 93/64; PULSE 80; RESP 18; TEMP 36.3; O2SAT 96; O2SAT 97
[2021-04-27] VITALS: BP 105/68; PULSE 58; RESP 18; TEMP 36.4; O2SAT 97
[2021-04-27 04:00] VITALS: BP 102/62; PULSE 67; RESP 16; TEMP 36.6; O2SAT 96
[2021-04-27 06:58] LABS: Hematocrit 38.7 % (37.0-47.0); Hemoglobin 12.7 g/dL (12.0-15.0); Immature Platelet Fraction Pct 24.9 % (0.9-11.2); Mean Corpuscular HGB Conc 32.8 g/dl (32-36); Mean Corpuscular Hemoglobin 27.9 pg (26-34); Mean Corpuscular Volume 85.1 fl (80-100); Platelet Count Result 200 k/mm3 (150-375); Red Blood Count 4.55 M/mm3 (4.2-5.4); Red Cell Distribution Width 12.1 % (11.5-14.5); White Blood Count 6.1 K/mm3 (4.5-10.0)
[2021-04-27 07:02] LABS: Alanine Aminotransferase 66 U/L (4-35); Albumin Level 3.3 g/dL (3.5-5.1); Alkaline Phosphatase 39 U/L (38-126); Anion Gap 9 mmol/L (8-16); Aspartate Amino Transferase 37 U/L (14-36); Bilirubin,Total 0.6 mg/dL (0.2-1.3); Blood Urea Nitrogen 18 mg/dL (7-17); Calcium 8.6 mg/dL (8.4-10.2); Carbon Dioxide 24 mmol/L (22-30); Chloride 104 mmol/L (98-107); Estimated CRCL calculation 175 ml/min; Estimated Glomerular Filt Rate > 60; Glucose 213 mg/dL (65-110); Magnesium 1.9 mg/dL (1.6-2.3); Potassium 3.8 mmol/L (3.4-5.0); Sodium 137 mmol/L (137-145)
[2021-04-27 08:00] VITALS: BP 101/67; PULSE 71; RESP 20; TEMP 36.4; O2SAT 96; O2SAT 97
[2021-04-27] MEDS: BENZONATATE 100 MG CAPSULE 200 MG PO (08:01)
[2021-04-27] MEDS: guaiFENesin 12 HR 600 MG TABCR 1200 MG PO (08:02)
[2021-04-27] MEDS: DEXAMETHASONE 2 MG TABLET 6 MG PO (08:02)
[2021-04-27] MEDS: ENOXAPARIN 40 MG/0.4 ML SYRINGE SUB-Q (08:02)
--- NOTE | 2021-04-27 11:09 | P.DS_ITS ---
DS: Admitting Diagnosis Admitting Diagnosis COVID-19 pneumonia DS: Discharge Diagnosis Discharge Diagnosis (1) COVID-19: Code(s): U07.1 - COVID-19 Status: Acute Assessment and Plan: * Test was positive * Continue Dexamethasone Day 4 * Supplemental oxygen * IS * Pep therapy * Supportive care patient will be sent home with 4 days of dexamethasone p.o.. Patient has been on room air and is satting 97% will get patient a home O2 eval to ensure the patient does need oxygen at home. (2) Acute respiratory failure with hypoxia: Code(s): J96.01 - Acute respiratory failure with hypoxia Status: Acute Assessment and Plan: * possibly secondary to pneumonia versus COVID * imaging indicates patchy pulmonary infiltration that has worsened since 04/18/2021 * azithromycin and Rocephin DC'd on 04/26/21 * continue dexamethasone day 4 * if patient's blood culture is without growth we will discontinue the use of antibiotics * COVID positive * blood culture no growth to date * WBC 5.1 * elevated D-dimer 0.81 * CTA does not indicate pulmonary embolism * Supplemental oxygen to maintain O2 saturation of >92% (3) Pneumonia: Qualifiers: Laterality: bilateral Lung location: unspecified part of lung Pneumonia type: due to unspecified organism Qualified Code(s): J18.9 - Pneumonia, unspecified organism Code(s): J18.9 - Pneumonia, unspecified organism Status: Acute Assessment and Plan: * patient is covid positive * this problem has been resolved * possibly secondary to pneumonia versus COVID * imaging indicates patchy pulmonary infiltration that has worsened since 04/18/2021 * continue azithromycin and Rocephin day 3 * continue dexamethasone * if patient's blood culture is without growth we will discontinue the use of antibiotics * COVID still pending * blood culture no growth to date * WBC 4.8 * elevated D-dimer 0.81 * CTA does not indicate pulmonary embolism (4) Suspected COVID-19 virus infection: Code(s): Z20.822 - Contact with and (suspected) exposure to COVID-19 Status: Acute Assessment and Plan: * possibly secondary to pneumonia versus COVID * imaging indicates patchy pulmonary infiltration that has worsened since 04/18/2021 * continue azithromycin 500mg IV daily and Rocephin 1gm IV daily day 3 * continue dexamethasone 6mg PO daily * if patient's blood culture is without growth we will discontinue the use of antibiotics * COVID still pending, collected on 04/23/21 * WBC 4.8 * elevated D-dimer 0.81 * CTA does not indicate pulmonary embolism (5) Hepatic steatosis: Code(s): K76.0 - Fatty (change of) liver, not elsewhere classified Status: Acute Assessment and Plan: * (6) Splenomegaly: Code(s): R16.1 - Splenomegaly, not elsewhere classified Status: Acute Assessment and Plan: * will monitor (7) Sepsis: Qualifiers: Acute respiratory failure type: with hypoxia Sepsis acute organ dysfunction status: with acute organ dysfunction Sepsis type: sepsis due to unspecified organism Severe sepsis acute organ dysfunction type: acute respiratory failure Severe sepsis shock status: without septic shock Qualified Code(s): A41.9 - Sepsis, unspecified organism; R65.20 - Severe sepsis without septic shock; J96.01 - Acute respiratory failure with hypoxia Code(s): A41.9 - Sepsis, unspecified organism Statu
--- NOTE | 2021-04-27 11:09 | PM.DS ---
DS: Admitting Diagnosis Admitting Diagnosis COVID-19 pneumonia DS: Discharge Diagnosis Discharge Diagnosis (1) COVID-19: Code(s): U07.1 - COVID-19 Status: Acute Assessment and Plan: Test was positive Continue Dexamethasone Day 4 Supplemental oxygen IS Pep therapy Supportive care patient will be sent home with 4 days of dexamethasone p.o.. Patient has been on room air and is satting 97% will get patient a home O2 eval to ensure the patient does need oxygen at home. (2) Acute respiratory failure with hypoxia: Code(s): J96.01 - Acute respiratory failure with hypoxia Status: Acute Assessment and Plan: possibly secondary to pneumonia versus COVID imaging indicates patchy pulmonary infiltration that has worsened since 04/18/2021 azithromycin and Rocephin DC'd on 04/26/21 continue dexamethasone day 4 if patient's blood culture is without growth we will discontinue the use of antibiotics COVID positive blood culture no growth to date WBC 5.1 elevated D-dimer 0.81 CTA does not indicate pulmonary embolism Supplemental oxygen to maintain O2 saturation of >92% (3) Pneumonia: Qualifiers: Laterality: bilateral Lung location: unspecified part of lung Pneumonia type: due to unspecified organism Qualified Code(s): J18.9 - Pneumonia, unspecified organism Code(s): J18.9 - Pneumonia, unspecified organism Status: Acute Assessment and Plan: patient is covid positive this problem has been resolved possibly secondary to pneumonia versus COVID imaging indicates patchy pulmonary infiltration that has worsened since 04/18/2021 continue azithromycin and Rocephin day 3 continue dexamethasone if patient's blood culture is without growth we will discontinue the use of antibiotics COVID still pending blood culture no growth to date WBC 4.8 elevated D-dimer 0.81 CTA does not indicate pulmonary embolism (4) Suspected COVID-19 virus infection: Code(s): Z20.822 - Contact with and (suspected) exposure to COVID-19 Status: Acute Assessment and Plan: possibly secondary to pneumonia versus COVID imaging indicates patchy pulmonary infiltration that has worsened since 04/18/2021 continue azithromycin 500mg IV daily and Rocephin 1gm IV daily day 3 continue dexamethasone 6mg PO daily if patient's blood culture is without growth we will discontinue the use of antibiotics COVID still pending, collected on 7/25/21 WBC 4.8 elevated D-dimer 0.81 CTA does not indicate pulmonary embolism (5) Hepatic steatosis: Code(s): K76.0 - Fatty (change of) liver, not elsewhere classified Status: Acute Assessment and Plan: (6) Splenomegaly: Code(s): R16.1 - Splenomegaly, not elsewhere classified Status: Acute Assessment and Plan: will monitor (7) Sepsis: Qualifiers: Acute respiratory failure type: with hypoxia Sepsis acute organ dysfunction status: with acute organ dysfunction Sepsis type: sepsis due to unspecified organism Severe sepsis acute organ dysfunction type: acute respiratory failure Severe sepsis shock status: without septic shock Qualified Code(s): A41.9 - Sepsis, unspecified organism; R65.20 - Severe sepsis without septic shock; J96.01 - Acute respiratory failure with hypoxia Code(s): A41.9 - Sepsis, unspecified organism Status: Acute Assessment and Plan: as evidenced by tachycardia, tachypnea,hypoxia and soft BP WBC 5.1 blood culture pending no growth to date lactic acid 1.1 CRP 2 (8) Thrombocytopenia: Code(s): D69.6 - Thrombocytopenia, unspecified Status: Acute Assessment and Plan: platelets 159 today decrease stone last admission 86 etiology unknown could possibly be secondary to sepsis will trend if no improvement hematology/ oncology will need to b
[2021-04-27 11:25] VITALS: PULSE 72; O2SAT 94
[2021-04-27 11:30] VITALS: PULSE 90; O2SAT 92
[2021-04-27 11:49] VITALS: PULSE 74; O2SAT 94
--- NOTE | 2021-04-27 11:49 | PCRCNOTE ---
HOME O2 EVAL COMPLETE, NO REQUIREMENTS
== END 2021-04-27 12:01 | disposition home or self-care (01) | DRG 720 ==
LOC: ANHED 21:16 → ANH3MEDSUR 04-23 02:13
PROVIDERS: Emergency Medicine; Nurse Practitioner; Admitting Provider Internal Medicine; Emergency Provider General Practice; Visit Provider Nurse Practitioner
DX: A41.89 Other specified sepsis (principal); R65.20 Severe sepsis without septic shock; U07.1 COVID-19; J12.82 Pneumonia due to coronavirus disease 2019; J96.01 Acute respiratory failure with hypoxia; K76.0 Fatty (change of) liver, not elsewhere classified; E61.2 Magnesium deficiency; D69.6 Thrombocytopenia, unspecified; R16.1 Splenomegaly, not elsewhere classified
CPT/HCPCS: 36415; 36600; 51701; 71045; 71275; 74177; 80053; 81001; 81025; 82375; 82728; 82805; 83050; 83605; 83615; 83690; 83735; 84484; 85025; 85027; 85055; 85380; 85610; 85730; 86140; 87040; 93005; 94618; 94640; 96365; 96366; 96367; 99285; A9270; C9803; J0131; J0456; J0696; J1650; J3475; J7030; J8540; Q9967; U0003; U0005

== ENCOUNTER 2021-10-02 11:53 | Emergency (ER) | payer SELFPAY ==
--- NOTE | ~2021-10-02 | XR_ITS ---
XR ankle LT min 3V DATE: 10/02/2021 12:47 INDICATION: Fall today. Ankle and foot pain TECHNIQUE: 3 views COMPARISON: None FINDINGS: No fracture or dislocation of the ankle or disruption of the ankle mortise. No periosteal r eaction or bone destruction. IMPRESSION: Negative Reviewed, dictated and finalized at location A. VERY RN IMPRESSION: Negative
--- NOTE | ~2021-10-02 | XR_ITS ---
XR foot LT min 3V DATE: 10/02/2021 12:46 INDICATION: Fall today. Entire left ankle and foot pain TECHNIQUE: 4 views of left foot COMPARISON: None FINDINGS: There is mild osteoarthritis at the first metatarsophalangeal joint. No fracture or dislocation, periosteal reaction or bone destruction. IMPRESSION: Mild osteoarthritis at first metatarsophalangeal joint Reviewed, dictated and finalized at location A. [employer]
[2021-10-02 12:13] VITALS: BP 139/82; PULSE 87; RESP 17; TEMP 36.7; O2SAT 98
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
[2021-10-02] MEDS: TETANUS,DIPHTHERIA,AC PERTUSSIS ADULT (0.5 ML) BOOSTRIX IM (13:49)
[2021-10-02 14:01] VITALS: BP 142/76; PULSE 80; RESP 18; O2SAT 99
== END 2021-10-02 14:03 | disposition home or self-care (01) ==
PROVIDERS: Emergency Provider Emergency Medicine
DX: S97.82XA Crushing injury of left foot, initial encounter (principal); S90.812A Abrasion, left foot, initial encounter; Z23 Encounter for immunization; F17.210 Nicotine dependence, cigarettes, uncomplicated; V64 Occupant of heavy transport vehicle injured in collision with heavy transport vehicle or bus
CPT/HCPCS: 73610; 73630; 90471; 90715; 99283